=== PATIENT | female | born 1970 | race Caucasian/White ===

== ENCOUNTER 2024-01-01 08:30 | Outpatient (AMB) | payer OTHER, SELFPAY ==
[2024-01-01 08:54] VITALS: BP 110/66; PULSE 55; TEMP 36.8; O2SAT 96; BMI 21.8
--- NOTE | 2024-01-01 08:54 | AM.OFFWIN_ITS ---
Intake Vital Signs 01/01/24 08:54 Height 5 ft 7 in Weight 139 lb BMI 21.8 BP 110/66 Blood Pressure Location Rt brachial Position Sitting Pulse 55 Pulse Source Pulse Oximeter Temp 98.3 F Temp Source Oral Pulse Oximetry (%) 96 Oxygen Delivery Method Room Air Intake Visit Reasons: [employer] cough, headache, ears Intake Note: pt is here for cough, headache, congestion, and ear pain Patient Tobacco Use Status: Current everyday Tobacco user Allergies sulfamethoxazole [From Bactrim] Allergy (Mild, Verified 01/01/24 08:55) Hives trimethoprim [From Bactrim] Allergy (Mild, Verified 01/01/24 08:55) Hives Do you need a note to return to daycare/school/sports/work: Yes HPI HPI Comments History of Present Illness Details 53-year-old female presents today compla ining of congestion bilateral ear pain cough x3 days. PFSH Social History Patient Tobacco Use Status: Current everyday Tobacco user Review of Systems Const All systems reviewed & are unremarkable except as noted in HPI and below Eyes Reports no additional complaints ENT Reports Normal hearing present, Reports otalgia, Reports nasal congestion, Reports sinus pain and Reports sinus pressure Card Reports no additional complaints Resp Reports cough GI Reports no additional complaints Neuro Reports Normal hearing present Physical Exam Vital Signs: Last Vital Signs Temp 98.3 F 01/01/24 08:54 Pulse 55 01/01/24 08:54 BP 110/66 01/01/24 08:54 Pulse Ox 96 01/01/24 08:54 Oxygen Delivery Method Room Air 01/01/24 08:54 BMI result Body Mass Index 21.8 Const General: healthy appearing and acute distress mild HEENT Head: Yes normal to inspection, Yes normocephalic and Yes atraumatic Ears: hearing grossly normal bilaterally, EAC's normal and TM abnormal (bilateral) bulging and erythematous General nose exam: Normal external nose present Face and sinus: Yes sinus tenderness Throat: Yes posterior oropharynx normal Resp Effort & Inspection: normal respiratory effort Auscultation: clear to auscultation bilaterally Cardio Rate: regular rate Rhythm: regular rhythm Heart sounds: S1 normal heart sound present and S2 normal heart sound present Neuro Cranial nerves: Yes Normal hearing present Assessment & Plan Assessment & Plan (1) Otitis media, unspecified, bilateral: Code(s): H66.93 - Otitis media, unspecified, bilateral Plan: antibiotic ordered and will f/u with PCP Plan see plan Orders: Orders SARS-CoV2/FLU/RSV Today R05.9 - Cough, unspecified Medications: New amoxicillin 875 mg PO BID 14 tabs 0RF 7 days Coding Level of Care Code Est Pt Level 3 (86631) Diagnoses Otitis media, unspecified, bilateral H66.93
== END 2024-01-01 10:08 | disposition home or self-care (01) ==
PROVIDERS: PCP Internal Medicine; Visit Provider Physician Assistant Medical
DX: H66.93 Otitis media, unspecified, bilateral (principal)
CPT/HCPCS: 99213

== ENCOUNTER 2024-01-01 10:41 | Outpatient (REF) | payer OTHER, SELFPAY ==
[2024-01-01 11:26] LABS: Influenza A PCR NEGATIVE (Negative); Influenza B PCR NEGATIVE (Negative); Resp Syncy Virus RNA Qual PCR NEGATIVE (Negative); SARS COV2 PCR INHOUSE POSITIVE (Negative)
== END 2024-01-01 10:42 | disposition home or self-care (01) ==
LOC: HO.LNP 10:41
PROVIDERS: Visit Provider Physician Assistant Medical
DX: R05.9 Cough, unspecified (principal)
CPT/HCPCS: 0241U